=== PATIENT | female | born 1980 | race American Indian/Alaskan Native ===

== ENCOUNTER 2016-09-09 02:13 | Emergency (ER) | payer SELFPAY ==
[2016-09-09 03:27] LABS: Basophils % (Auto) 0.6 % (0.0-1.8); Eosinophils % (Auto) 1.6 % (0.0-4.3); Hemoglobin 12.7 gm/dl (10.1-14.3); White Blood Count 7.3 K/mm3 (4.5-11.0)
[2016-09-09 03:30] LABS: Hematocrit 40.4 % (30.3-42.9); Mean Corpuscular HGB Conc 32 % (30-34); Mean Corpuscular Hemoglobin 30 pg (28-32); Mean Corpuscular Volume 91 fl (79-97); Platelet Count 248 K/mm3 (140-440); Red Blood Count 4.42 M/mm3 (3.65-5.03); Red Cell Distribution Width 12.9 % (13.2-15.2)
[2016-09-09 04:03] LABS: Alanine Aminotransferase 11 units/L (7-56); Albumin 3.8 g/dL (3.9-5); Albumin/Globulin Ratio 1.1 %; Alkaline Phosphatase 58 units/L (35-129); Anion Gap 15 mmol/L; Bilirubin,Total 0.2 mg/dL (0.1-1.2); Blood Urea Nitrogen 6 mg/dL (7-17); Carbon Dioxide 26 mmol/L (22-30); Chloride 102.8 mmol/L (98-107); Glucose 107 mg/dL (65-100); Lipase 22 units/L (13-60); Potassium 3.8 mmol/L (3.6-5.0); Sodium 140 mmol/L (137-145); Total Protein 7.4 g/dL (6.3-8.2)
[2016-09-09 04:40] LABS: Bacteria,Urine 1+ /HPF (Negative); Bilirubin,Urine NEG (Negative); Blood,Urine NEG (Negative); Ketones,Urine NEG (Negative); Leukocyte Esterase,Urine NEG (Negative); Mucus,Urine FEW /HPF; Nitrite,Urine NEG (Negative); Protein,Urine <15 mg/dL mg/dL (Negative)
--- NOTE | 2016-09-09 11:39 | Ultrasound Report ---
ULTRASOUND ABDOMEN COMPLETE: Technique: Transabdominal ultrasound with color Doppler interrogation. History: Right upper quadrant abdominal pain. Findings: The liver is normal size, contour and echotexture. Several small shadowing gallstones are appreciated within the gallbladder lumen. No evidence for wall thickening or pericholecystic fluid. The CBD measures 6 mm. No obvious choledocholithiasis. The visualized portions of the pancreas including the head and proximal body are within normal limits. The kidneys demonstrate no hydronephrosis or mass. Cortical thickness and echogenicity are within normal limits bilaterally. The spleen and aorta are within normal limits. No aneurysmal dilatation is noted. No ascites. The bladder is unremarkable. IMPRESSION: Cholelithiasis.
[2016-09-09] MEDS ORDERED: TORADOL IV ONE (11:47)
--- NOTE | 2016-09-09 11:53 | Emergency Department Report ---
HPI - General Chief Complaint: Abdominal Pain Time Seen by Provider: 09/09/16 10:45 - HPI HPI: Room 24 The patient is a 36-year-old female presenting with a chief complaint of back pain and abdominal pain. The patient states her symptoms began last night at midnight while on the bed attempting to sleep. Patient denies any preceding trauma or sudden movements. Patient states she developed pain in her mid and right back in addition to her epigastric region. Patient describes the pain as cramping, dull and sharp in nature. Patient denies nausea vomiting or diarrhea. Patient denies vaginal discharge, dysuria or hematuria. Patient denies any history of fever Location: [see above] Duration: [see above] Quality: [see above] Severity: 04/27 Modifying factors: [see above] Context: [see above] Mode of transportation: The patient drove herself to the emergency department and there are no visitors present ED Past Medical Hx - Past Medical History Previous Medical History?: Yes Additional medical history: gallstones - Surgical History Past Surgical History?: Yes Additional Surgical History: x 2 - Family History Family history: no significant - Social History Smoking Status: Never Smoker Substance Use Type: None - Medications Home Medications: Home Medications Medication Instructions Recorded Confirmed Last Taken Type Amoxicillin/K Clav Tab [Augmentin 1 tab PO Q12HR #20 tab 07/17/15 Unknown Rx 875 mg] Fluticasone [Flonase] 2 spray NS QDAY #1 bottle 07/17/15 Unknown Rx Ibuprofen [Motrin] 600 mg PO Q8H PRN #40 tablet 07/17/15 Unknown Rx Prednisone [predniSONE 10 mg 10 mg PO .TAPER #1 tab.ds.pk 07/17/15 Unknown Rx (6-Day Pack, 21 Tabs)] Promethazine /Codeine 5 ml PO Q6H PRN #150 ml 07/17/15 Unknown Rx [Phenergan/Codeine 6.25-10 mg/5 ml] Dicyclomine [Bentyl] 20 mg PO QID #30 tablet 09/09/16 Unknown Rx HYDROcodone/APAP 5-325 [[place] 1 - 2 each PO Q6HR PRN #14 tablet 09/09/16 Unknown Rx 5/325] Ibuprofen [Motrin 800 MG tab] 800 mg PO Q8HR PRN #20 tablet 09/09/16 Unknown Rx ED Review of Systems ROS: Stated complaint: N/V Other details as noted in HPI Comment: All other systems reviewed and negative Constitutional: denies: fever Eyes: denies: eye pain, eye discharge, vision change ENT: denies: ear pain, throat pain Respiratory: denies: cough, shortness of breath, wheezing Cardiovascular: denies: chest pain, palpitations Endocrine: no symptoms reported Gastrointestinal: abdominal pain. denies: nausea, vomiting, diarrhea Genitourinary: denies: urgency, dysuria, discharge, abnormal menses Musculoskeletal: denies: back pain, joint swelling, arthralgia Skin: denies: rash, lesions Neurological: denies: headache, weakness, paresthesias Psychiatric: denies: anxiety, depression Hematological/Lymphatic: denies: easy bleeding, easy bruising Physical Exam - Physical Exam Vital Signs: Vital Signs 09/09/16 09/09/16 02:36 06:56 Temperature 98.5 F 98.6 F Pulse Rate 81 61 Respiratory 18 14 Rate Blood Pressure 140/97 143/84 O2 Sat by Pulse 97 100 Oximetry Physical Exam: GENERAL: The patient is well-developed well-nourished female lying in the left lateral decubitus position rest. [] HEENT: Normocephalic. Atraumatic. Extraocular motions are intact. Patient has moist mucous membranes. NECK: Supple. Trachea midline CHEST/LUNGS: Clear to auscultation. There is no respiratory distress noted. HEART/CARDIOVASCULAR: Regular. There is no tachycardia. There is no gallop rub or murmur. ABDOMEN: Abdomen is soft, with tenderness to palpation in epigastric, right upper quadrant and right lower quadrant. Patient has normal bowel sounds. There is no abdominal distention. SKIN: There is no rash. There is no edema. There is no diaphoresis. NEURO: The patient is awake, alert, and oriented. The patient is cooperative. The patient has normal speech MUSCULOSKELETAL: There is bilateral CVA tenderness. There is no evidence of acute injury. ED Course Vital Signs 09/09/16 09/09/16 02:36 06:56 Temperature 98.5 F 98.6 F Pulse Rate 81 61 Respiratory 18 14 Rate Blood Pressure 140/97 143/84 O2 Sat by Pulse 97 100 Oximetry ED Medical Decision Making - Lab Data Result diagrams: 09/09/16 03:09 09/09/16 03:09 Laboratory Tests 09/09/16 09/09/16 09/09/16 03:09 03:09 Unknown WBC 7.3 RBC 4.42 Hgb 12.7 Hct 40.4 MCV 91 MCH 30 MCHC 32 RDW 12.9 L Plt Count 248 Lymph % (Auto) 39.6 H [place] % (Auto) 6.3 Eos % (Auto) 1.6 Baso % (Auto) 0.6 Lymph # 2.9 Hamb[place] # 0.5 Eos # 0.1 Baso # 0.0 Seg Neutrophils % 51.9 Seg Neutrophils # 3.8 Sodium 140 Potassium 3.8 Chloride 102.8 Carbon Dioxide 26 Anion Gap 15 BUN 6 L Creatinine 0.6 L Estimated GFR > 60 BUN/Creatinine Ratio 10.00 Glucose 107 H Calcium 9.0 Total Bilirubin 0.2 AST 14 ALT 11 Alkaline Phosphatase 58 Total Protein 7.4 Albumin 3.8 L Albumin/Globulin Ratio 1.1 Lipase 22 Urine Color Yellow Urine Turbidity Clear Urine pH 7.0 Ur Specific [place] 1.016 Urine Protein <15 mg/dl Urine Glucose (UA) Neg Urine Ketones Neg Urine Blood Neg Urine Nitrite Neg Ur Reducing Substances Not Reportable Urine Bilirubin Neg Urine Ictotest Not Reportable Urine Urobilinogen 2.0 Ur Leukocyte Esterase Neg Urine WBC (Auto) 1.0 Urine RBC (Auto) 1.0 U Epithel Cells (Auto) 4.0 Urine Bacteria (Auto) 1+ Urine Mucus Few Urine HCG, Qual Negative - Radiology Data Radiology results: report reviewed (abdominal ultrasound, CT abdomen and pelvis) , image reviewed (abdominal ultrasound, CT abdomen and pelvis) Abdominal ultrasound (read by radiologist)-cholelithiasis. Common bile duct measures 6 mm. No obvious choledocholithiasis. No evidence fall thickening or pericholecystic fluid. CT abdomen and pelvis (read by radiologist)-mildly distended gallbladder. Evidence of gallstones on ultrasound. This there clinical concern for early acute cholecystitis? Consider HIDA scan if needed. Trace pleural effusions of uncertain etiology - Differential Diagnosis acute cholecystitis, symptomatic cholelithiasis, renal colic, pyelonephriti Critical care attestation.: If time is entered above; I have spent that time in minutes in the direct care of this critically ill patient, excluding procedure time. ED Disposition Clinical Impression: Symptomatic cholelithiasis Disposition: DISCHARGED TO HOME OR SELFCARE Is pt being admited?: No Does the pt Need Aspirin: No Condition: Stable Instructions: Abdominal Pain (ED) Additional Instructions: Return to the emergency department immediately should you develop worsening symptoms, fever, inability to tolerate food or liquid or any other concerns. Prescriptions: Dicyclomine [Bentyl] 20 mg PO QID #30 tablet HYDROcodone/APAP 5-325 [[place] 5/325] 1 - 2 each PO Q6HR PRN #14 tablet PRN Reason: Pain Ibuprofen [Motrin 800 MG tab] 800 mg PO Q8HR PRN #20 tablet PRN Reason: Pain Referrals: PRIMARY CARE, [Primary Care Provider] - 3-5 Days LOKI DOHERTY MD [Staff Physician] - 3-5 Days (Dr. Doherty is a general surgeon. Please follow up with him for further evaluation of your gallstones) Time of Disposition: 13:22
[2016-09-09] MEDS ORDERED: NACL ONE (11:56)
[2016-09-09 11:57] VITALS: BP 123/87
--- NOTE | 2016-09-09 12:51 | Cat Scan Report ---
CT ABDOMEN AND PELVIS WITH CONTRAST History: Right-sided abdominal pain. Right back pain. Technique: Helical CT following IV contrast. Sagittal and coronal reformatted images. Findings: Correlation is made with the abdominal ultrasound performed the same day. The gallbladder appears distended on CT measuring 16 cm in length and 4.5 cm in diameter. Small gallstones were identified on ultrasound but not clearly demonstrated on CT. The remainder of the biliary system is grossly normal. Normal liver, spleen, pancreas, kidneys, adrenal glands, aorta, bowel loops, appendix, uterus, adnexa and bladder. No evidence for ascites, adenopathy or advanced inflammatory changes. Trace bilateral pleural effusions are identified, slightly larger on the right side. The visualized lung bases are clear. Normal heart size. Impression: Mildly distended gallbladder. Evidence of gallstones on ultrasound. Is there clinical concern for early acute cholecystitis? Consider HIDA scan if needed. Trace pleural effusions of uncertain etiology.
[2016-09-09] MEDS ORDERED: BENTYL IM ONE (13:22)
== END 2016-09-09 13:41 | disposition home or self-care (01) ==
LOC: ED 02:13
DX: K80.80 Other cholelithiasis without obstruction (principal)
CPT/HCPCS: 36415; 74177; 76700; 80053; 81001; 81025; 83690; 85025; 96372; 96374; 99284; J0500; J1885; Q9967

== ENCOUNTER 2017-10-16 13:13 | Emergency (ER) | payer MEDICAID ==
[2017-10-16 13:41] VITALS: BP 136/92
--- NOTE | 2017-10-16 16:11 | Emergency Department Report ---
ED Rash HPI - HPI Chief Complaint: Skin Rash Stated Complaint: RASH Time Seen by Provider: 10/16/17 15:01 Duration: 3 Days Location: Lower Extremities (left thigh) Rash Symptoms: Yes Itching, Yes Blistering, No Facial Swelling, No Tongue/Oral Swelling, No Breathing Difficulties, No Choking Sensation, No Wheezing/Dyspnea, No Peeling, No Fever, No Lightheaded, No Malaise, No Myalgias Severity: mild Other History: 37-year-old female past medical history obesity presents with complaint of 3 days of rash to left thigh. ED Review of Systems ROS: Stated complaint: RASH Other details as noted in HPI ED Past Medical Hx - Past Medical History Previous Medical History?: Yes Additional medical history: gallstones - Surgical History Past Surgical History?: Yes Additional Surgical History: x 2 - Social History Smoking Status: Never Smoker Substance Use Type: None - Medications Home Medications: Home Medications Medication Instructions Recorded Confirmed Last Taken Type Amoxicillin/K Clav Tab [Augmentin 1 tab PO Q12HR #20 tab 07/17/15 Unknown Rx 875 mg] Fluticasone [Flonase] 2 spray NS QDAY #1 bottle 07/17/15 Unknown Rx Ibuprofen [Motrin] 600 mg PO Q8H PRN #40 tablet 07/17/15 Unknown Rx Prednisone [predniSONE 10 mg 10 mg PO .TAPER #1 tab.ds.pk 07/17/15 Unknown Rx (6-Day Pack, 21 Tabs)] Promethazine /Codeine 5 ml PO Q6H PRN #150 ml 07/17/15 Unknown Rx [Phenergan/Codeine 6.25-10 mg/5 ml] Dicyclomine [Bentyl] 20 mg PO QID #30 tablet 09/09/16 Unknown Rx HYDROcodone/APAP 5-325 [[place] 1 - 2 each PO Q6HR PRN #14 tablet 09/09/16 Unknown Rx 5/325] Ibuprofen [Motrin 800 MG tab] 800 mg PO Q8HR PRN #20 tablet 09/09/16 Unknown Rx HYDROcodone/APAP 5-325 [[place] 1 each PO Q6HR PRN #12 tablet 10/16/17 Unknown Rx 5/325] Ibuprofen [Motrin] 800 mg PO Q8HR PRN #20 tablet 10/16/17 Unknown Rx Valacyclovir HCl [Valtrex] 1,000 mg PO BID #20 tablet 10/16/17 Unknown Rx Rash Exam - Exam General: Vital signs noted. No distress. Alert and acting appropriately. ED Course Vital Signs 10/16/17 13:37 Temperature 98.4 F Pulse Rate 79 Respiratory 18 Rate Blood Pressure 136/92 O2 Sat by Pulse 98 Oximetry Critical care attestation.: If time is entered above; I have spent that time in minutes in the direct care of this critically ill patient, excluding procedure time. ED Disposition Clinical Impression: Shingles rash Qualifiers: Herpes zoster complications: without complications Qualified Code(s): B02.9 - Zoster without complications Disposition: - TO HOME OR SELFCARE Is pt being admited?: No Does the pt Need Aspirin: No Condition: Stable Instructions: Herpes Zoster (ED) Prescriptions: HYDROcodone/APAP 5-325 [[place] 5/325] 1 each PO Q6HR PRN #12 tablet PRN Reason: Pain Ibuprofen [Motrin] 800 mg PO Q8HR PRN #20 tablet PRN Reason: Pain Valacyclovir HCl [Valtrex] 1,000 mg PO BID #20 tablet Referrals: [facility] [Provider Group] - 3-5 Days Forms: Work/School Release Form(ED) Time of Disposition: 16:11
== END 2017-10-16 16:20 | disposition home or self-care (01) ==
LOC: ED 13:13
DX: B02.9 Zoster without complications (principal)
CPT/HCPCS: 99282

== ENCOUNTER 2019-03-29 09:20 | Emergency (ER) | payer MEDICAID ==
[2019-03-29 09:35] VITALS: BP 151/100
[2019-03-29] MEDS ORDERED: TYLENOL PO ONE (11:02)
--- NOTE | 2019-03-29 11:26 | Emergency Department Report ---
ED Headache HPI - General Chief Complaint: Headache Stated Complaint: SEVERE HEADACHE 4XDAYS Time Seen by Provider: 03/29/19 11:01 - History of Present Illness Initial Comments: 39-year-old -Cypriot female presents to the emergency room complaining of a headache. Patient reports that the headache and some right frontal and right occipital that is dull in pressure. Patient denies any nausea no vomiting. She does admit to light sensitivity. She does not have a primary care provider. She does admit to having elevated blood pressure during her . She currently takes no medications on a daily basis. It was noted that patient has an elevated blood pressure 151/100. Patient last took ibuprofen yesterday which she reports did not help. Quality: achy, pressure Head Injury Location: frontal, occipital Recent Head Trauma: no recent headache/trauma Associated Symptoms: denies symptoms Allergies/Adverse Reactions: Allergies No Known Allergies Allergy (Unverified 11/03/14 15:57) Home Medications: Ambulatory Orders Amoxicillin/K Clav Tab [Augmentin 875 mg] 1 tab PO Q12HR #20 tab 07/17/15 Fluticasone [Flonase] 2 spray NS QDAY #1 bottle 07/17/15 Ibuprofen [Motrin] 600 mg PO Q8H PRN #40 tablet 07/17/15 Prednisone [predniSONE 10 mg (6-Day Pack, 21 Tabs)] 10 mg PO .TAPER #1 tab.ds.pk 07/17/15 Promethazine /Codeine [Phenergan/Codeine 6.25-10 mg/5 ml] 5 ml PO Q6H PRN #150 ml 07/17/15 Dicyclomine [Bentyl] 20 mg PO QID #30 tablet 09/09/16 HYDROcodone/APAP 5-325 [[place] 5/325] 1 - 2 each PO Q6HR PRN #14 tablet 09/09/16 Ibuprofen [Motrin 800 MG tab] 800 mg PO Q8HR PRN #20 tablet 09/09/16 HYDROcodone/APAP 5-325 [[place] 5/325] 1 each PO Q6HR PRN #12 tablet 10/16/17 Valacyclovir HCl [Valtrex] 1,000 mg PO BID #20 tablet 10/16/17 Nystas/Diphen/Xyl Visc/Mylanta [Magic Mouthwash] 15 ml PO ONCE #100 oral.liqd 12/01/18 Penicillin V Potassium 500 mg PO BID #20 tablet 06/18/18 Dextromethorphan HBr [Tussin Cough] 10 ml PO TID #100 ml 06/21/18 Ibuprofen [Motrin 800 MG tab] 800 mg PO Q8HR PRN #20 tablet 06/21/18 Acetaminophen [Acetaminophen TAB] 1,000 mg PO Q6HR PRN #24 tablet 03/29/19 amLODIPine [Norvasc] 5 mg PO DAILY #30 tab 03/29/19 ED Review of Systems ROS: Stated complaint: SEVERE HEADACHE 4XDAYS Other details as noted in HPI Comment: All other systems reviewed and negative Neurological: headache ED Past Medical Hx - Past Medical History Previous Medical History?: No Additional medical history: gallstones - Surgical History Past Surgical History?: Yes Additional Surgical History: x 2 - Social History Smoking Status: Never Smoker Substance Use Type: None - Medications Home Medications: Home Medications Medication Instructions Recorded Confirmed Last Taken Type Amoxicillin/K Clav Tab [Augmentin 1 tab PO Q12HR #20 tab 07/17/15 Unknown Rx 875 mg] Fluticasone [Flonase] 2 spray NS QDAY #1 bottle 07/17/15 Unknown Rx Ibuprofen [Motrin] 600 mg PO Q8H PRN #40 tablet 07/17/15 Unknown Rx Prednisone [predniSONE 10 mg 10 mg PO .TAPER #1 tab.ds.pk 07/17/15 Unknown Rx (6-Day Pack, 21 Tabs)] Promethazine /Codeine 5 ml PO Q6H PRN #150 ml 07/17/15 Unknown Rx [Phenergan/Codeine 6.25-10 mg/5 ml] Dicyclomine [Bentyl] 20 mg PO QID #30 tablet 09/09/16 Unknown Rx HYDROcodone/APAP 5-325 [[place] 1 - 2 each PO Q6HR PRN #14 tablet 09/09/16 Unknown Rx 5/325] Ibuprofen [Motrin 800 MG tab] 800 mg PO Q8HR PRN #20 tablet 09/09/16 Unknown Rx HYDROcodone/APAP 5-325 [[place] 1 each PO Q6HR PRN #12 tablet 10/16/17 Unknown Rx 5/325] Valacyclovir HCl [Valtrex] 1,000 mg PO BID #20 tablet 10/16/17 Unknown Rx Nystas/Diphen/Xyl Visc/Mylanta 15 ml PO ONCE #100 oral.liqd 06/18/18 Unknown Rx [Magic Mouthwash] Penicillin V Potassium 500 mg PO BID #20 tablet 06/18/18 Unknown Rx Dextromethorphan HBr [Tussin Cough] 10 ml PO TID #100 ml 06/21/18 Unknown Rx Ibuprofen [Motrin 800 MG tab] 800 mg PO Q8HR PRN #20 tablet 06/21/18 Unknown Rx Acetaminophen [Acetaminophen TAB] 1,000 mg PO Q6HR PRN #24 tablet 03/29/19 Unknown Rx amLODIPine [Norvasc] 5 mg PO DAILY #30 tab 03/29/19 Unknown Rx ED Physical Exam - General Limitations: No Limitations General appearance: alert, in no apparent distress - Head Head exam: Present: atraumatic, normocephalic - Eye Eye exam: Present: normal appearance - ENT ENT exam: Present: mucous membranes moist - Neck Neck exam: Present: normal inspection, full ROM - Respiratory Respiratory exam: Present: normal lung sounds bilaterally. Absent: respiratory distress - Cardiovascular Cardiovascular Exam: Present: regular rate, normal rhythm. Absent: systolic murmur, diastolic murmur, rubs, gallop - Neurological Exam Neurological exam: Present: normal gait - Expanded Neurological Exam Expanded Cranial nerves: EOM's Intact: Normal, Gag Reflex: Normal, Tongue Deviation: Normal, Nystagmus: Normal, Facial Sensation: Normal, Facial Palsy with Forehead Movement: Normal, Facial Palsy without Forehead Movement: Normal Cerebellar function: Finger to Nose: Normal, Heel to Hedrick: Normal, Romberg: Normal Upper motor neuron: Randolph Neglect: Normal, Pronator Drift: Normal, Babinski Sign: Normal, Sensory Extinction: Normal Sensory exam: Upper Extremity Light Touch: Normal, Upper Extremity Pin Prick: Normal, Upper Extremity Temperature: Normal, UE 2 Point Discrimination: Normal, Lower Extremity Light Touch: Normal, Lower Extremity Pin Prick: Normal, Lower Extremity Temperature: Normal, LE 2 Point Discrimination: Normal Motor strength exam: RUE: 4, LUE: 4, RLE: 4, LLE: 4 Best Eye Response ([place]): (4) open spontaneously Best Motor Response ([place]): (6) obeys commands Best Verbal Response ([place]): (5) oriented Yoel Total: 15 - Psychiatric Psychiatric exam: Present: normal affect, normal mood - Skin Skin exam: Present: warm, dry, intact, normal color. Absent: rash ED Course Vital Signs 03/29/19 09:33 Temperature 98.3 F Pulse Rate 71 Respiratory 16 Rate Blood Pressure 151/100 [Left] O2 Sat by Pulse 94 Oximetry ED Medical Decision Making - Medical Decision Making 39-year-old -Cypriot female presents to the emergency room complaining of a headache. Patient reports that the headache and some right frontal and right occipital that is dull in pressure. Patient denies any nausea no vomiting. She does admit to light sensitivity. She does not have a primary care provider. She does admit to having elevated blood pressure during her . She currently takes no medications on a daily basis. It was noted that patient has an elevated blood pressure 151/100. Patient last took ibuprofen yesterday which she reports did not help. Patient be given acetaminophen 1000 mg by mouth. Patient be discharged home on amlodipine 5 mg daily and to follow-up with the primary care provider. Critical care attestation.: If time is entered above; I have spent that time in minutes in the direct care of this critically ill patient, excluding procedure time. ED Disposition Clinical Impression: Headache, Hypertension Disposition: DC-01 TO HOME OR SELFCARE Is pt being admited?: No Does the pt Need Aspirin: No Condition: Stable Instructions: Hypertension (ED), Acute Headache (ED) Prescriptions: Acetaminophen [Acetaminophen TAB] 1,000 mg PO Q6HR PRN #24 tablet PRN Reason: Pain , Severe (7-10) amLODIPine [Norvasc] 5 mg PO DAILY #30 tab Referrals: PRIMARY CARE, [Primary Care Provider] - 3-5 Days [facility] [Outside] - 3-5 Days [facility] [Outside] - 3-5 Days Forms: Work/School Release Form(ED)
== END 2019-03-29 11:43 | disposition home or self-care (01) ==
LOC: ED 09:20
DX: I10 Essential (primary) hypertension (principal); Z79.899 Other long term (current) drug therapy
CPT/HCPCS: 99282

== ENCOUNTER 2019-05-25 11:44 | Emergency (ER) | payer MEDICAID ==
--- NOTE | 2019-05-25 11:51 | Emergency Department Report ---
Blank Doc - Documentation Documentation: 39-year-old female that presents with right calf pain. This initial assessment/diagnostic orders/clinical plan/treatment(s) is/are subject to change based on patient's health status, clinical progression and re- assessment by fellow clinical providers in the ED. Further treatment and workup at subsequent clinical providers discretion. Patient/guardians urged not to elope from the ED as their condition may be serious if not clinically assessed and managed. Initial orders include: 1- Patient sent to [facility] for further evaluation and treatment 2- labs 3- Doppler US
[2019-05-25 11:53] VITALS: BP 127/78
--- NOTE | 2019-05-25 13:02 | Vascular Lab Report ---
DUPLEX DOPPLER LOWER EXTREMITY VEINS, RIGHT INDICATION: Right leg pain for 4 days. TECHNIQUE: Duplex doppler imaging was performed through the veins of the right lower extremity using venous compression and other maneuvers. COMPARISON: No relevant prior imaging study available. FINDINGS: Right Common femoral vein: Negative. Right Superficial femoral vein: Negative. Right Popliteal vein: Negative. Right Calf veins: Negative. Additional findings: Small popliteal cyst is noted.. IMPRESSION: No sonographic evidence for DVT in the right lower extremity. Small popliteal cyst. Signer Name: Carlos Graf Jr, MD Signed: 05/25/2019 12:57 PM Workstation Name: [id number]
[2019-05-25 13:38] LABS: Basophils % (Auto) 0.6 % (0.0-1.8); Eosinophils # (Auto) 0.1 K/mm3 (0.0-0.4); Eosinophils % (Auto) 2.1 % (0.0-4.3); Hematocrit 39.1 % (30.3-42.9); Hemoglobin 12.9 gm/dl (10.1-14.3); Lymphocytes # (Auto) 2.6 K/mm3 (1.2-5.4); Lymphocytes % (Auto) 52.4 % (13.4-35.0); Mean Corpuscular HGB Conc 33 % (30-34); Mean Corpuscular Volume 91 fl (79-97); Monocytes # (Auto) 0.4 K/mm3 (0.0-0.8); Monocytes % (Auto) 7.7 % (0.0-7.3); Platelet Count 352 K/mm3 (140-440); Red Blood Count 4.31 M/mm3 (3.65-5.03); Red Cell Distribution Width 12.5 % (13.2-15.2)
[2019-05-25 13:55] LABS: BUN/Creatinine Ratio 13; Blood Urea Nitrogen 8 mg/dL (7-17); Calcium 9.2 mg/dL (8.4-10.2); Hemolysis Index 3
--- NOTE | 2019-05-25 14:24 | Emergency Department Report ---
ED Extremity Problem HPI - General Chief complaint: Extremity Problem,Nontraumatic Stated complaint: CRAMP IN CALF/4DAYS Time Seen by Provider: 05/25/19 11:50 Source: patient Mode of arrival: Ambulatory Limitations: No Limitations - History of Present Illness Initial comments: Patient is 39 years old female with no significant past medical history. Syl espinoza presented to the ER complaining of right leg pain for the last 4 days. Patient described her pain as crampy. Patient denied any recent immobilization. Patient also denied any chest pain or shortness of breath. MD Complaint: extremity pain - Related Data Previous Rx's Medication Instructions Recorded Last Taken Type Amoxicillin/K Clav Tab [Augmentin 1 tab PO Q12HR #20 tab 07/17/15 Unknown Rx 875 mg] Fluticasone [Flonase] 2 spray NS QDAY #1 bottle 07/17/15 Unknown Rx Ibuprofen [Motrin] 600 mg PO Q8H PRN #40 tablet 07/17/15 Unknown Rx Prednisone [predniSONE 10 mg 10 mg PO .TAPER #1 tab.ds.pk 07/17/15 Unknown Rx (6-Day Pack, 21 Tabs)] Promethazine /Codeine 5 ml PO Q6H PRN #150 ml 07/17/15 Unknown Rx [Phenergan/Codeine 6.25-10 mg/5 ml] Dicyclomine [Bentyl] 20 mg PO QID #30 tablet 09/09/16 Unknown Rx HYDROcodone/APAP 5-325 [[place] 1 - 2 each PO Q6HR PRN #14 tablet 09/09/16 Unknown Rx 5/325] Ibuprofen [Motrin 800 MG tab] 800 mg PO Q8HR PRN #20 tablet 09/09/16 Unknown Rx HYDROcodone/APAP 5-325 [[place] 1 each PO Q6HR PRN #12 tablet 10/16/17 Unknown Rx 5/325] Valacyclovir HCl [Valtrex] 1,000 mg PO BID #20 tablet 10/16/17 Unknown Rx Nystas/Diphen/Xyl Visc/Mylanta 15 ml PO ONCE #100 oral.liqd 06/18/18 Unknown Rx [Magic Mouthwash] Penicillin V Potassium 500 mg PO BID #20 tablet 06/18/18 Unknown Rx Dextromethorphan HBr [Tussin Cough] 10 ml PO TID #100 ml 06/21/18 Unknown Rx Ibuprofen [Motrin 800 MG tab] 800 mg PO Q8HR PRN #20 tablet 06/21/18 Unknown Rx Acetaminophen [Acetaminophen TAB] 1,000 mg PO Q6HR PRN #24 tablet 03/29/19 Unknown Rx amLODIPine 5 mg PO DAILY #30 tab 03/29/19 Unknown Rx Allergies Allergy/AdvReac Type Severity Reaction Status Date / Time No Known Allergies Allergy Unverified 11/03/14 15:57 ED Review of Systems ROS: Stated complaint: CRAMP IN CALF/4DAYS Other details as noted in HPI Comment: All other systems reviewed and negative Constitutional: denies: chills, fever Respiratory: denies: cough, shortness of breath Cardiovascular: denies: chest pain Gastrointestinal: denies: abdominal pain, nausea, vomiting, diarrhea, constipation, hematemesis, hematochezia Musculoskeletal: denies: back pain ED Past Medical Hx - Past Medical History Previous Medical History?: Yes Hx Hypertension: Yes Additional medical history: gallstones - Surgical History Past Surgical History?: Yes Additional Surgical History: x 2 - Social History Smoking Status: Never Smoker Substance Use Type: None - Medications Home Medications: Home Medications Medication Instructions Recorded Confirmed Last Taken Type Amoxicillin/K Clav Tab [Augmentin 1 tab PO Q12HR #20 tab 07/17/15 Unknown Rx 875 mg] Fluticasone [Flonase] 2 spray NS QDAY #1 bottle 07/17/15 Unknown Rx Ibuprofen [Motrin] 600 mg PO Q8H PRN #40 tablet 07/17/15 Unknown Rx Prednisone [predniSONE 10 mg 10 mg PO .TAPER #1 tab.ds.pk 07/17/15 Unknown Rx (6-Day Pack, 21 Tabs)] Promethazine /Codeine 5 ml PO Q6H PRN #150 ml 07/17/15 Unknown Rx [Phenergan/Codeine 6.25-10 mg/5 ml] Dicyclomine [Bentyl] 20 mg PO QID #30 tablet 09/09/16 Unknown Rx HYDROcodone/APAP 5-325 [[place] 1 - 2 each PO Q6HR PRN #14 tablet 09/09/16 U nknown Rx 5/325] Ibuprofen [Motrin 800 MG tab] 800 mg PO Q8HR PRN #20 tablet 09/09/16 Unknown Rx HYDROcodone/APAP 5-325 [[place] 1 each PO Q6HR PRN #12 tablet 10/16/17 Unknown Rx 5/325] Valacyclovir HCl [Valtrex] 1,000 mg PO BID #20 tablet 10/16/17 Unknown Rx Nystas/Diphen/Xyl Visc/Mylanta 15 ml PO ONCE #100 oral.liqd 06/18/18 Unknown Rx [Magic Mouthwash] Penicillin V Potassium 500 mg PO BID #20 tablet 06/18/18 Unknown Rx Dextromethorphan HBr [Tussin Cough] 10 ml PO TID #100 ml 06/21/18 Unknown Rx Ibuprofen [Motrin 800 MG tab] 800 mg PO Q8HR PRN #20 tablet 06/21/18 Unknown Rx Acetaminophen [Acetaminophen TAB] 1,000 mg PO Q6HR PRN #24 tablet 03/29/19 Un known Rx amLODIPine 5 mg PO DAILY #30 tab 03/29/19 Unknown Rx ED Physical Exam - General Limitations: No Limitations General appearance: alert, in no apparent distress - Head Head exam: Present: atraumatic, normocephalic, normal inspection - Eye Eye exam: Present: normal appearance - ENT ENT exam: Present: normal exam, normal orophraynx, mucous membranes moist - Neck Neck exam: Present: normal inspection, full ROM. Absent: tenderness, meningi smus, lymphadenopathy, thyromegaly - Respiratory Respiratory exam: Present: normal lung sounds bilaterally - Cardiovascular Cardiovascular Exam: Present: regular rate, normal rhythm, normal heart sounds - GI/Abdominal GI/Abdominal exam: Present: soft, normal bowel sounds. Absent: distended, tenderness, guarding, rebound, rigid, organomegaly, mass, bruit, pulsatile mass - Extremities Exam Extremities exam: Present: normal inspection, full ROM, normal capillary refill. Absent: tenderness, pedal edema, calf tenderness - Back Exam Back exam: Present: normal inspection, full ROM. Absent: CVA tenderness (R), CVA tenderness (L), muscle spasm, paraspinal tenderness, vertebral tenderness - Neurological Exam Neurological exam: Present: alert, oriented X3, CN II-XII intact - Psychiatric Psychiatric exam: Present: normal mood - Skin Skin exam: Present: warm, intact, normal color ED Course Vital Signs 05/25/19 11:50 Temperature 98.4 F Pulse Rate 76 Respiratory 17 Rate Blood Pressure 127/78 O2 Sat by Pulse 98 Oximetry ED Medical Decision Making - Lab Data Result diagrams: 05/25/19 12:55 05/25/19 12:55 - Radiology Data Radiology results: report reviewed - Medical Decision Making Patient is 39 years old female with no significant past medical history. Patient presented to the ER complaining of right leg pain for the last 4 days. Patient described her pain as crampy. Patient denied any recent immobilization. Patient also denied any chest pain or shortness of breath. Labs reviewed and is unremarkable. Right lower extremity Doppler ultrasound is negative for DVT. Patient given prescription for Naprosyn and Flexeril and advised to follow-up with her primary care physician in the next 2-3 days and to return to the ER if symptoms are not improved. Critical care attestation.: If time is entered above; I have spent that time in minutes in the direct care of this critically ill patient, excluding procedure time. ED Disposition Clinical Impression: Right leg pain Disposition: DC-01 TO HOME OR SELFCARE Is pt being admited?: No Condition: Stable Instructions: Muscle Strain (ED) Referrals: [facility] [Provider Group] - 3-5 Days
== END 2019-05-25 14:35 | disposition home or self-care (01) ==
LOC: ED 11:44
DX: M79.604 Pain in right leg (principal); I10 Essential (primary) hypertension; Z98.890 Other specified postprocedural states; Z79.899 Other long term (current) drug therapy
CPT/HCPCS: 36415; 80048; 84703; 85025

== ENCOUNTER 2021-04-02 16:00 | Emergency (ER) | payer MEDICAID ==
--- NOTE | 2021-04-02 18:24 | Emergency Department Report ---
ED General Adult HPI - General Chief complaint: Urogenital-Female Stated complaint: VAGINAL DISCHARGE Time Seen by Provider: 04/02/21 17:50 Source: patient Mode of arrival: Ambulatory Limitations: No Limitations - History of Present Illness Initial comments: 41-year-old -[place] female patient presents with complaints of vaginal discharge x3 weeks. She denies any abdominal pain, dyspareunia, vaginal bleeding, dysuria/hematuria/urinary frequency, or fever/chills/sweats. She states the discharge is yellow in color and profuse. No past medical history per patient. She states she attempted to make an appointment to see her primary care doctor, however there was no availability until May of this year. - Related Data Previous Rx's Medication Instructions Recorded Last Taken Type Amoxicillin/K Clav Tab [Augmentin 1 tab PO Q12HR #20 tab 07/17/15 Unknown Rx 875 mg] Fluticasone [Flonase] 2 spray NS QDAY #1 bottle 07/17/15 Unknown Rx Ibuprofen [Motrin] 600 mg PO Q8H PRN #40 tablet 07/17/15 Unknown Rx Prednisone [predniSONE 10 mg 10 mg PO .TAPER #1 tab.ds.pk 07/17/15 Unknown Rx (6-Day Pack, 21 Tabs)] Promethazine /Codeine 5 ml PO Q6H PRN #150 ml 07/17/15 Unknown Rx [Phenergan/Codeine 6.25-10 mg/5 ml] Dicyclomine [Bentyl] 20 mg PO QID #30 tablet 09/09/16 Unknown Rx HYDROcodone/APAP 5-325 [[place] 1 - 2 each PO Q6HR PRN #14 tablet 09/09/16 Unknown Rx 5/325] Ibuprofen [Motrin 800 MG tab] 800 mg PO Q8HR PRN #20 tablet 09/09/16 Unknown Rx HYDROcodone/APAP 5-325 [[place] 1 each PO Q6HR PRN #12 tablet 10/16/17 Unknown Rx 5/325] Valacyclovir HCl [Valtrex] 1,000 mg PO BID #20 tablet 10/16/17 Unknown Rx Nystas/Diphen/Xyl Visc/Mylanta 15 ml PO ONCE #100 oral.liqd 06/18/18 Unknown Rx [Magic Mouthwash] Penicillin V Potassium 500 mg PO BID #20 tablet 06/18/18 Unknown Rx Dextromethorphan HBr [Tussin Cough] 10 ml PO TID #100 ml 06/21/18 Unknown Rx Ibuprofen [Motrin 800 MG tab] 800 mg PO Q8HR PRN #20 tablet 06/21/18 Unknown Rx Acetaminophen [Acetaminophen TAB] 1,000 mg PO Q6HR PRN #24 tablet 03/29/19 Unknown Rx amLODIPine 5 mg PO DAILY #30 tab 03/29/19 Unknown Rx Cyclobenzaprine [Flexeril] 10 mg PO TID PRN #30 tablet 05/25/19 Unknown Rx Naproxen [Naprosyn] 500 mg PO BID #14 tablet 05/25/19 Unknown Rx Azithromycin 1,000 mg PO ONCE #2 tablet 04/02/21 Unknown Rx metroNIDAZOLE [Flagyl TAB] 500 mg PO Q12HR 7 Days #14 tab 04/02/21 Unknown Rx Allergies Allergy/AdvReac Type Severity Reaction Status Date / Time No Known Allergies Allergy Unverified 11/03/14 15:57 ED Review of Systems ROS: Stated complaint: VAGINAL DISCHARGE Other details as noted in HPI Constitutional: denies: chills, diaphoresis, fever, malaise Cardiovascular: denies: chest pain Gastrointestinal: denies: abdominal pain, nausea, vomiting Genitourinary: discharge. denies: urgency, dysuria, frequency, hematuria, abnormal menses, dyspareunia Skin: denies: rash, lesions, change in color Hematological/Lymphatic: denies: swollen glands ED Past Medical Hx - Past Medical History Previous Medical History?: Yes Hx Hypertension: Yes Additional medical history: gallstones - Surgical History Past Surgical History?: Yes Additional Surgical History: x 2 - Social History Smoking Status: Never Smoker Substance Use Type: None - Medications Home Medications: Home Medications Medication Instructions Recorded Confirmed Last Taken Type Amoxicillin/K Clav Tab [Augmentin 1 tab PO Q12HR #20 tab 07/17/15 Unknown Rx 875 mg] Fluticasone [Flonase] 2 spray NS QDAY #1 bottle 07/17/15 Unknown Rx Ibuprofen [Motrin] 600 mg PO Q8H PRN #40 tablet 07/17/15 Unknown Rx Prednisone [predniSONE 10 mg 10 mg PO .TAPER #1 tab.ds.pk 07/17/15 Unknown Rx (6-Day Pack, 21 Tabs)] Promethazine /Codeine 5 ml PO Q6H PRN #150 ml 07/17/15 Unknown Rx [Phenergan/Codeine 6.25-10 mg/5 ml] Dicyclomine [Bentyl] 20 mg PO QID #30 tablet 09/09/16 Unknown Rx HYDROcodone/APAP 5-325 [[place] 1 - 2 each PO Q6HR PRN #14 tablet 09/09/16 Unknown Rx 5/325] Ibuprofen [Motrin 800 MG tab] 800 mg PO Q8HR PRN #20 tablet 09/09/16 Unknown Rx HYDROcodone/APAP 5-325 [[place] 1 each PO Q6HR PRN #12 tablet 10/16/17 Unknown Rx 5/325] Valacyclovir HCl [Valtrex] 1,000 mg PO BID #20 tablet 10/16/17 Unknown Rx Nystas/Diphen/Xyl Visc/Mylanta 15 ml PO ONCE #100 oral.liqd 06/18/18 Unknown Rx [Magic Mouthwash] Penicillin V Potassium 500 mg PO BID #20 tablet 06/18/18 Unknown Rx Dextromethorphan HBr [Tussin Cough] 10 ml PO TID #100 ml 06/21/18 Unknown Rx Ibuprofen [Motrin 800 MG tab] 800 mg PO Q8HR PRN #20 tablet 06/21/18 Unknown Rx Acetaminophen [Acetaminophen TAB] 1,000 mg PO Q6HR PRN #24 tablet 03/29/19 Unknown Rx amLODIPine 5 mg PO DAILY #30 tab 03/29/19 Unknown Rx Cyclobenzaprine [Flexeril] 10 mg PO TID PRN #30 tablet 05/25/19 Unknown Rx Naproxen [Naprosyn] 500 mg PO BID #14 tablet 05/25/19 Unknown Rx Azithromycin 1,000 mg PO ONCE #2 tablet 04/02/21 Unknown Rx metroNIDAZOLE [Flagyl TAB] 500 mg PO Q12HR 7 Days #14 tab 04/02/21 Unknown Rx ED Physical Exam - General Limitations: No Limitations General appearance: alert, in no apparent distress, obese - Head Head exam: Present: atraumatic, normocephalic - Eye Eye exam: Present: normal appearance. Absent: scleral icterus - Respiratory Respiratory exam: Absent: respiratory distress - Cardiovascular Cardiovascular Exam: Present: regular rate - GI/Abdominal GI/Abdominal exam: Present: soft. Absent: distended, tenderness, guarding, rebound, rigid - Neurological Exam Neurological exam: Present: alert, oriented X3 - Psychiatric Psychiatric exam: Present: normal affect, normal mood - Skin Skin exam: Present: warm, dry, intact, normal color. Absent: rash ED Course Vital Signs 04/02/21 16:35 Temperature 99.1 F Pulse Rate 72 Respiratory 20 Rate Blood Pressure 150/82 O2 Sat by Pulse 99 Oximetry ED Medical Decision Making - Medical Decision Making 41-year-old -[place] female patient presents with complaints of vaginal discharge x3 weeks. She denies any abdominal pain, dyspareunia, vaginal bleeding, dysuria/hematuria/urinary frequency, or fever/chills/sweats. She states the discharge is yellow in color and profuse. No past medical history per patient. She states she attempted to make an appointment to see her primary care doctor, however there was no availability until May of this year. We will give empiric coverage for STIs with Rocephin and home prescription for azithromycin Flagyl. Patient instructed to follow-up with the health department for full STI testing. She is also instructed to have her partner get tested and treated. She is well-appearing, her vitals are within normal limits, she is stable for discharge home. Strict return precautions were discussed in detail patient verbalizes understanding. Critical care attestation.: If time is entered above; I have spent that time in minutes in the direct care of this critically ill patient, excluding procedure time. ED Disposition Clinical Impression: Vaginal discharge Disposition: 30 STILL A PATIENT Is pt being admited?: No Condition: Stable Instructions: Vaginitis, Chlamydia, Female, Preventing Sexually Transmitted Infections, Adult, Gonorrhea Additional Instructions: Please follow-up with the health department for full STI testing Prescriptions: Azithromycin 1,000 mg PO ONCE #2 tablet metroNIDAZOLE [Flagyl TAB] 500 mg PO Q12HR 7 Days #14 tab
[2021-04-02] MEDS ORDERED: LIDOCAINE-MPF (1%) 10 MG/1 ML VIAL 5 ML INFILTRATI ONE (18:30)
[2021-04-02 18:46] LABS: Bilirubin,Urine NEG (Negative); Blood,Urine NEG (Negative); Color,Urine Yellow (Yellow); Mucus,Urine FEW /HPF; Protein,Urine <15 mg/dL mg/dL (Negative); Urobilinogen,Urine < 2.0 mg/dL (<2.0)
[2021-04-02 19:03] VITALS: BP 148/94
== END 2021-04-02 19:03 | disposition still patient (30) ==
LOC: ED 16:00
DX: N89.8 Other specified noninflammatory disorders of vagina (principal); I10 Essential (primary) hypertension; K80.80 Other cholelithiasis without obstruction; Z98.890 Other specified postprocedural states
CPT/HCPCS: 81001; 96372; 99283; J0696

== ENCOUNTER 2021-05-08 15:49 | Emergency (ER) | payer MEDICAID ==
--- NOTE | 2021-05-08 16:29 | Emergency Department Report ---
ED Upper Extremity Inj HPI - General Chief Complaint: Extremity Injury, Upper Stated Complaint: LT ARM PAIN Time Seen by Provider: 05/08/21 16:14 Source: patient Mode of arrival: Ambulatory Limitations: No Limitations - History of Present Illness Initial Comments: This is a 41-year-old female nontoxic, well nourished in appearance, no acute signs of distress presents to the ED with c/o of left deltoid pain x 2 days. Patient stated that she received a COVID vaccine to that area and the next day started to have pains. Patient denies any injuries or trauma. Patient denies any numbness, tingling, fever, chills, nausea, vomiting, chest pain, shortness of breath, headache, stiff neck. Patient denies any joint swelling or joint redness. Patient denies decreased range of motion. Patient denies any allergies or significant past medical history. MD Complaint: Injury to:: left, shoulder -: days(s) Other Extremity Injury: Shoulder: Left Severity scale (0 -10): 3 Improves With: immobilization Worsens With: movement of extremity Associated Symptoms: denies other symptoms. denies: weakness, numbness, neck pain, suspects foreign body, nausea/vomiting, heard/felt popping sensat - Related Data Previous Rx's Medication Instructions Recorded Last Taken Type Amoxicillin/K Clav Tab [Augmentin 1 tab PO Q12HR #20 tab 07/17/15 Unknown Rx 875 mg] Fluticasone [Flonase] 2 spray NS QDAY #1 bottle 07/17/15 Unknown Rx Ibuprofen [Motrin] 600 mg PO Q8H PRN #40 tablet 07/17/15 Unknown Rx Prednisone [predniSONE 10 mg 10 mg PO .TAPER #1 tab.ds.pk 07/17/15 Unknown Rx (6-Day Pack, 21 Tabs)] Promethazine /Codeine 5 ml PO Q6H PRN #150 ml 07/17/15 Unknown Rx [Phenergan/Codeine 6.25-10 mg/5 ml] Dicyclomine [Bentyl] 20 mg PO QID #30 tablet 09/09/16 Unknown Rx HYDROcodone/APAP 5-325 [Heidrick 1 - 2 each PO Q6HR PRN #14 tablet 09/09/16 Unknown Rx 5/325] Ibuprofen [Motrin 800 MG tab] 800 mg PO Q8HR PRN #20 tablet 09/09/16 Unknown Rx HYDROcodone/APAP 5-325 [Heidrick 1 each PO Q6HR PRN #12 tablet 10/16/17 Unknown Rx 5/325] Valacyclovir HCl [Valtrex] 1,000 mg PO BID #20 tablet 10/16/17 Unknown Rx Nystas/Diphen/Xyl Visc/Mylanta 15 ml PO ONCE #100 oral.liqd 06/18/18 Unknown Rx [Magic Mouthwash] Penicillin V Potassium 500 mg PO BID #20 tablet 06/18/18 Unknown Rx Dextromethorphan HBr [Tussin Cough] 10 ml PO TID #100 ml 06/21/18 Unknown Rx Ibuprofen [Motrin 800 MG tab] 800 mg PO Q8HR PRN #20 tablet 06/21/18 Unknown Rx Acetaminophen [Acetaminophen TAB] 1,000 mg PO Q6HR PRN #24 tablet 03/29/19 Unknown Rx amLODIPine 5 mg PO DAILY #30 tab 03/29/19 Unknown Rx Cyclobenzaprine [Flexeril] 10 mg PO TID PRN #30 tablet 05/25/19 Unknown Rx Naproxen [Naprosyn] 500 mg PO BID #14 tablet 05/25/19 Unknown Rx Azithromycin 1,000 mg PO ONCE #2 tablet 04/02/21 Unknown Rx metroNIDAZOLE [Flagyl TAB] 500 mg PO Q12HR 7 Days #14 tab 04/02/21 Unknown Rx Cyclobenzaprine [Flexeril] 10 mg PO QHS PRN #10 tablet 05/08/21 Unknown Rx Naproxen 500 mg PO Q12H PRN #12 tablet 05/08/21 Unknown Rx Allergies Allergy/AdvReac Type Severity Reaction Status Date / Time No Known Allergies Allergy Verified 05/08/21 15:50 ED Review of Systems ROS: Stated complaint: LT ARM PAIN Other details as noted in HPI Comment: All other systems reviewed and negative Constitutional: denies: chills, fever Eyes: denies: eye pain, eye discharge, vision change ENT: denies: ear pain, throat pain Respiratory: denies: cough, shortness of breath, wheezing Cardiovascular: denies: chest pain, palpitations Endocrine: no symptoms reported Gastrointestinal: denies: abdominal pain, nausea, diarrhea Genitourinary: denies: urgency, dysuria, discharge Musculoskeletal: denies: back pain, joint swelling, arthralgia Skin: denies: rash, lesions Neurological: denies: headache, weakness, paresthesias Psychiatric: denies: anxiety, depression Hematological/Lymphatic: denies: easy bleeding, easy bruising ED Past Medical Hx - Past Medical History Hx Hypertension: Yes Additional medical history: gallstones - Surgical History Additional Surgical History: x 2 - Social History Smoking Status: Never Smoker Substance Use Type: None - Medications Home Medications: Home Medications Medication Instructions Recorded Confirmed Last Taken Type Amoxicillin/K Clav Tab [Augmentin 1 tab PO Q12HR #20 tab 07/17/15 Unknown Rx 875 mg] Fluticasone [Flonase] 2 spray NS QDAY #1 bottle 07/17/15 Unknown Rx Ibuprofen [Motrin] 600 mg PO Q8H PRN #40 tablet 07/17/15 Unknown Rx Prednisone [predniSONE 10 mg 10 mg PO .TAPER #1 tab.ds.pk 07/17/15 Unknown Rx (6-Day Pack, 21 Tabs)] Promethazine /Codeine 5 ml PO Q6H PRN #150 ml 07/17/15 Unknown Rx [Phenergan/Codeine 6.25-10 mg/5 ml] Dicyclomine [Bentyl] 20 mg PO QID #30 tablet 09/09/16 Unknown Rx HYDROcodone/APAP 5-325 [Heidrick 1 - 2 each PO Q6HR PRN #14 tablet 09/09/16 Unk nown Rx 5/325] Ibuprofen [Motrin 800 MG tab] 800 mg PO Q8HR PRN #20 tablet 09/09/16 Unknown Rx HYDROcodone/APAP 5-325 [Heidrick 1 each PO Q6HR PRN #12 tablet 10/16/17 Unknown Rx 5/325] Valacyclovir HCl [Valtrex] 1,000 mg PO BID #20 tablet 10/16/17 Unknown Rx Nystas/Diphen/Xyl Visc/Mylanta 15 ml PO ONCE #100 oral.liqd 06/18/18 Unknown Rx [Magic Mouthwash] Penicillin V Potassium 500 mg PO BID #20 tablet 06/18/18 Unknown Rx Dextromethorphan HBr [Tussin Cough] 10 ml PO TID #100 ml 06/21/18 Unknown Rx Ibuprofen [Motrin 800 MG tab] 800 mg PO Q8HR PRN #20 tablet 06/21/18 Unknown Rx Acetaminophen [Acetaminophen TAB] 1,000 mg PO Q6HR PRN #24 tablet 03/29/19 Unknown Rx amLODIPine 5 mg PO DAILY #30 tab 03/29/19 Unknown Rx Cyclobenzaprine [Flexeril] 10 mg PO TID PRN #30 tablet 05/25/19 Unknown Rx Naproxen [Naprosyn] 500 mg PO BID #14 tablet 05/25/19 Unknown Rx Azithromycin 1,000 mg PO ONCE #2 tablet 04/02/21 Unknown Rx metroNIDAZOLE [Flagyl TAB] 500 mg PO Q12HR 7 Days #14 tab 04/02/21 Unknown Rx Cyclobenzaprine [Flexeril] 10 mg PO QHS PRN #10 tablet 05/08/21 Unknown Rx Naproxen 500 mg PO Q12H PRN #12 tablet 05/08/21 Unknown Rx ED Physical Exam - General Limitations: No Limitations General appearance: alert, in no apparent distress - Head Head exam: Present: atraumatic, normocephalic - Eye Eye exam: Present: normal appearance - ENT ENT exam: Present: mucous membranes moist - Neck Neck exam: Present: normal inspection, full ROM. Absent: lymphadenopathy - Respiratory Respiratory exam: Absent: respiratory distress - Cardiovascular Cardiovascular Exam: Present: regular rate - Extremities Exam Extremities exam: Present: normal inspection, full ROM, tenderness, normal capillary refill. Absent: joint swelling - Expanded Upper Extremity Exam Left General: Present: normal inspection Shoulder Exam: Present: normal inspection, full ROM, tenderness. Absent: swelling, abrasion, laceration, ecchymosis, deformity, crepidus, dislocation, erythema, tenderness over AC joint Upper Arm exam: Present: normal inspection, full ROM. Absent: tenderness, swelling Elbow exam: Present: normal inspection, full ROM. Absent: tenderness, swelling Forearm Wrist exam: Present: normal inspection, full ROM. Absent: tenderness, swelling Hand Wrist exam: Present: normal inspection, full ROM. Absent: tenderness, swelling Vascular: Present: normal capillary refill. Absent: vascular compromise (Neurovascular within normal limits) - Back Exam Back exam: Present: normal inspection, full ROM. Absent: tenderness, CVA tenderness (R), CVA tenderness (L), muscle spasm, paraspinal tenderness, vertebral tenderness, rash noted - Neurological Exam Neurological exam: Present: alert, oriented X3, normal gait - Psychiatric Psychiatric exam: Present: normal affect, normal mood - Skin Skin exam: Present: warm, dry, intact, normal color. Absent: rash ED Course Vital Signs 05/08/21 15:55 Temperature 98.1 F Pulse Rate 85 Respiratory 18 Rate Blood Pressure 137/82 O2 Sat by Pulse 96 Oximetry - Reevaluation(s) Reevaluation #1: 05/08/21 16:26 Patient is speaking in full sentences with no signs of distress noted. ED Medical Decision Making - Medical Decision Making This is a 41-year-old female that presents with left shoulder muscle strain. Patient is stable and was examined by me. I referred patient to an orthopedic doctor for further evaluation for possible MRI. Patient does have normal range of motion with some tenderness and no joint swelling. No ecchymosis. no joint redness or swelling. Not warm to touch. No signs of cellulites present. Patient was instructed to RICE therapy. Patient is discharged with naproxen and Flexeril. Patient was instructed not to operate any machinery while taking Flexeril due to possible drowsiness. At time of discharge, the patient does not seem toxic or ill in appearance. No acute signs of distress noted. Patient agrees to discharge treatment plan of care. No further questions noted by the patient. Critical care attestation.: If time is entered above; I have spent that time in minutes in the direct care of this critically ill patient, excluding procedure time. ED Disposition Clinical Impression: Pain at injection site of COVID-19 vaccine Muscle strain of left shoulder Qualifiers: Encounter type: initial encounter Qualified Code(s): S46.912A - Strain of unspecified muscle, fascia and tendon at shoulder and upper arm level, left arm, initial encounter Disposition: 01 HOME / SELF CARE / HOMELESS Is pt being admited?: No Does the pt Need Aspirin: No Condition: Stable Instructions: Muscle Strain, [id number] Additional Instructions: Follow-up with a primary care doctor in 3-5 days or if symptoms worsen and continue return to emergency room as soon as possible. Take naproxen and Flexeril as prescribed. Do not operate heavy machinery while taking Flexeril due to sedation Prescriptions: Cyclobenzaprine [Flexeril] 10 mg PO QHS PRN #10 tablet PRN Reason: Muscle Spasm Naproxen 500 mg PO Q12H PRN #12 tablet PRN Reason: Pain , Severe (7-10) Referrals: SAM MCKEE MD [Staff Physician] - 3-5 Days PRIMARY CAREMD [Referring] - 3-5 Days Forms: Work/School Release Form(ED) Time of Disposition: 16:29
[2021-05-08 17:05] VITALS: BP 131/87
== END 2021-05-08 17:05 | disposition home or self-care (01) ==
LOC: ED 15:49
DX: S46.912A Strain of unspecified muscle, fascia and tendon at shoulder and upper arm level, left arm, initial encounter (principal); I10 Essential (primary) hypertension; K80.80 Other cholelithiasis without obstruction; Z98.890 Other specified postprocedural states; X58.XXXA Exposure to other specified factors, initial encounter; Y93.89 Activity, other specified; Y92.89 Other specified places as the place of occurrence of the external cause; Y99.8 Other external cause status
CPT/HCPCS: 99281

== ENCOUNTER 2021-06-12 13:02 | Emergency (ER) | payer MEDICAID ==
[2021-06-12 13:15] VITALS: BP 155/93
--- NOTE | 2021-06-12 13:19 | Emergency Department Report ---
ED Rash HPI - HPI Chief Complaint: Skin/Abscess/Foreign Body Stated Complaint: SPIDER BITE Time Seen by Provider: 06/12/21 13:09 Duration: 1 Day Location: Lower Extremities (left leg ) Suspected Cause: Unknown Rash Symptoms: Yes Blistering, No Itching, No Facial Swelling, No Tongue/Oral Swelling, No Breathing Difficulties, No Choking Sensation, No Wheezing/Dyspnea, No Peeling, No Fever, No Lightheaded, No Malaise, No Myalgias Severity: mild Other History: 41 year old female presents to ED with c/o painful, sore rash to left posterior thigh and anteroir left lower leg. She states she noticed the areas yesterday. She is unsure of the cause/trigger. She denies any known bites or injury or new contacts or meds. She denies similar rash in past. She denies fever, chills, swelling, difficulty breathin or any other additional symptoms. ED Review of Systems ROS: Stated complaint: SPIDER BITE Other details as noted in HPI Comment: All other systems reviewed and negative Constitutional: denies: chills, diaphoresis, fever, malaise, weakness Eyes: denies: eye pain, eye discharge, vision change ENT: denies: ear pain, throat pain Respiratory: denies: cough, shortness of breath, wheezing Cardiovascular: denies: chest pain, palpitations Gastrointestinal: denies: abdominal pain, nausea, diarrhea Genitourinary: denies: urgency, dysuria, discharge Skin: rash Neurological: denies: headache, weakness, paresthesias Psychiatric: denies: anxiety, depression, auditory hallucinations, visual hallucinations, homicidal thoughts, suicidal thoughts Hematological/Lymphatic: denies: easy bleeding, easy bruising, swollen glands ED Past Medical Hx - Past Medical History Hx Hypertension: Yes Additional medical history: gallstones - Surgical History Additional Surgical History: x 2 - Social History Smoking Status: Never Smoker Substance Use Type: None - Medications Home Medications: Home Medications Medication Instructions Recorded Confirmed Last Taken Type Fluticasone [Flonase] 2 spray NS QDAY #1 bottle 07/17/15 Unknown Rx Ibuprofen [Motrin] 600 mg PO Q8H PRN #40 tablet 07/17/15 Unknown Rx Prednisone [predniSONE 10 mg 10 mg PO .TAPER #1 tab.ds.pk 07/17/15 Unknown Rx (6-Day Pack, 21 Tabs)] Promethazine /Codeine 5 ml PO Q6H PRN #150 ml 07/17/15 Unknown Rx [Phenergan/Codeine 6.25-10 mg/5 ml] Dicyclomine [Bentyl] 20 mg PO QID #30 tablet 09/09/16 Unknown Rx Ibuprofen [Motrin 800 MG tab] 800 mg PO Q8HR PRN #20 tablet 09/09/16 Unknown Rx Nystas/Diphen/Xyl Visc/Mylanta 15 ml PO ONCE #100 oral.liqd 06/18/18 Unknown Rx [Magic Mouthwash] Penicillin V Potassium 500 mg PO BID #20 tablet 06/18/18 Unknown Rx Dextromethorphan HBr [Tussin Cough] 10 ml PO TID #100 ml 06/21/18 Unknown Rx Ibuprofen [Motrin 800 MG tab] 800 mg PO Q8HR PRN #20 tablet 06/21/18 Unknown Rx Acetaminophen [Acetaminophen TAB] 1,000 mg PO Q6HR PRN #24 tablet 03/29/19 Unknown Rx amLODIPine 5 mg PO DAILY #30 tab 03/29/19 Unknown Rx Cyclobenzaprine [Flexeril] 10 mg PO TID PRN #30 tablet 05/25/19 Unknown Rx Naproxen [Naprosyn] 500 mg PO BID #14 tablet 05/25/19 Unknown Rx metroNIDAZOLE [Flagyl TAB] 500 mg PO Q12HR 7 Days #14 tab 04/02/21 Unknown Rx Cyclobenzaprine [Flexeril] 10 mg PO QHS PRN #10 tablet 05/08/21 Unknown Rx Naproxen 500 mg PO Q12H PRN #12 tablet 05/08/21 Unknown Rx Valacyclovir HCl [Valtrex] 1,000 mg PO BID #20 tablet 06/12/21 Unknown Rx cephALEXin [Keflex] 500 mg PO Q8HR #21 cap 06/12/21 Unknown Rx Rash Exam - Exam General: Vital signs noted. No distress. Alert and acting appropriately. HEENT: No Periorbital Edema, No Conjuctival Injection, No Chemosis, No Perioral Edema, No Tongue Edema, No Uvular Edema, No Compromised Airway, No Drooling Lungs: No Good Air Exchange, No Wheezes, No Ronchi, No Stridor, No Cough, No Labored Respirations, No Retractions, No Use of Accessory Muscles, No Other Abnormal Lung Sounds Heart: Yes Regular, No Murmur Skin: Yes Maculopapular Rash (small erythematous maculopapular vesicular pustular rash in single cluster noted to left posterior thigh. Mild ttp. No induration or fluctuance or cellulitis noted. There is a small mildly erythematous papular area noted anterior left lower leg with mild ttp. No induration or fluctuance noted. ) ED Medical Decision Making - Medical Decision Making The rash to pt posterior thigh could be related to herpes outbreak, pt does have hx genital hsv and therefore will be prescribed Valtrex, the area on her anterior left lower leg could be related to insect bite. She will also be given keflex which is an antibiotic to cover for possible associated bacterial infection. Suspected diagnosis and treatment plan with patient. Patient expressed understanding of all instructions and agree with plan. Patient stable at time of discharge. Critical care attestation.: If time is entered above; I have spent that time in minutes in the direct care of this critically ill patient, excluding procedure time. ED Disposition Clinical Impression: Skin rash Disposition: HOME / SELF CARE / HOMELESS Is pt being admited?: No Does the pt Need Aspirin: No Condition: Stable Instructions: Rash, Adult, [id number], Genital Herpes, Insect Bite, Adult, [id number] Additional Instructions: The rash to your posterior thigh could be related to herpes outbreak and therefore taking the valtrex with help with that, the one on your anterior lower leg could be related to insect bite. Either way you will also be given keflex which is an antibiotic to cover for possible associated bacterial infection. Keep the areas clean with soap and water. You can apply thin layer of neosporin after cleaning. Do not use peroxide or alcohol to clean the area. Follow up with your PCP. Return to ED if worse. Prescriptions: cephALEXin [Keflex] 500 mg PO Q8HR #21 cap Valacyclovir HCl [Valtrex] 1,000 mg PO BID #20 tablet Referrals: [facility] [Provider Group] - 3-5 Days Time of Disposition: 13:24
== END 2021-06-12 14:21 | disposition home or self-care (01) ==
LOC: ED 13:02
DX: R21 Rash and other nonspecific skin eruption (principal); I10 Essential (primary) hypertension; Z98.890 Other specified postprocedural states
CPT/HCPCS: 99281

== ENCOUNTER 2021-08-28 12:42 | Emergency (ER) | payer OTHER, BC ==
[2021-08-28 13:21] VITALS: BP 142/92
[2021-08-28] MEDS ORDERED: ACETAMINOPHEN 500 MG TAB PO STA (15:30)
[2021-08-28] MEDS ORDERED: IBUPROFEN 800 MG TAB PO STA (15:30)
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
== END 2021-08-28 15:53 | disposition home or self-care (01) ==
LOC: ED 12:42
DX: S16.1XXA Strain of muscle, fascia and tendon at neck level, initial encounter (principal); I10 Essential (primary) hypertension; X58.XXXA Exposure to other specified factors, initial encounter; Y93.89 Activity, other specified; Y92.89 Other specified places as the place of occurrence of the external cause; Y99.8 Other external cause status
CPT/HCPCS: 99282